=== PATIENT | female | born 1925 | race Caucasian/White ===

== ENCOUNTER → 2016-06-07 | Outpatient (CLI) | payer MEDICARE ==
[~2016-06-07] MED LIST: ASPEC81 PO; ATOR10TA88 PO; BNV150 PO; CITRACAL/D PO; CPR500 PO; MULT-506 PO; NXM/40 PO; OXYC-57 PO
[2016-06-07 18:33] LABS: ALT/SGPT 17 U/L (12-78); AST/SGOT 12 U/L (15-37); BLOOD UREA NITROGEN 19 mg/dl (7-18); BUN/CREATININE RATIO 17.4 (10-20); CALCIUM 8.8 mg/dl (8.5-10.1); CARBON DIOXIDE 26 mmol/L (21-32); CHLORIDE 107 mmol/L (98-107); GLUCOSE 87 mg/dl (70-99); SODIUM 140 mmol/L (136-145)
[2016-06-07 18:38] LABS: ALKALINE PHOSPHATASE 53 U/L (45-117)
== END | disposition home or self-care (01) ==
LOC: C.LABMFLN 09:18
PROVIDERS: ATTEND Family Medicine
DX: R60.0 Localized edema (principal)